=== PATIENT | female | born 1955 | race Caucasian/White ===

== ENCOUNTER 2020-05-06 13:31 | Emergency (ER) | payer BC ==
[~2020-05-06] VITALS: Ht 157.5 cm; Wt 58.5 kg
--- NOTE | 2020-05-06 13:32 | NUR ---
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 TO ER BED 16, HOOKED TO MONITOR, CHANGED TO HOSP GOWN, WARM BLANKET PROVIDED, PATIENT AAO x 4, BREATHING EVEN AND UNLABORED, AWAITING MD ALEXANDER.
--- NOTE | 2020-05-06 14:40 | NUR ---
AT BEDSIDE FOR EVAL.
--- NOTE | 2020-05-06 14:55 | NUR ---
PT IS WHEELED TO CT SCAN VIA [facility].
[2020-05-06] MEDS ORDERED: HYDROCODONE/APAP 10/325MG TABLET PO ONE (15:00)
[2020-05-06] MEDS ORDERED: TDAP [DIPH/PERTUSSIS/TET] 0.5 ML VIAL IM ONE ×2 (15:00→15:09)
[2020-05-06] MEDS ORDERED: HYDROCODONE/APAP 10/325MG TABLET ONE (15:09)
[2020-05-06] MEDS ORDERED: LIDOCAINE 1%-EPI 1:100,000 20 ML VIAL ONE (15:43)
[2020-05-06] MEDS ORDERED: LIDOCAINE 1%-EPI 1:100,000 50 ML VIAL IJ ONE (16:00)
--- NOTE | 2020-05-06 16:58 | NUR ---
IV removed. Catheter intact and site benign. Pressure and 4x4 applied to site. No bleeding noted. Patient discharged to home in stable condition. Written and verbal after care instructions given. Patient verbalizes understanding of instruction.
[2020-05-06 16:59] VITALS: BP 138/77
== END 2020-05-06 17:00 | disposition home or self-care (01) ==
LOC: ER 13:42
DX: S01.81XA Laceration without foreign body of other part of head, initial encounter (principal); S50.812A Abrasion of left forearm, initial encounter; R51.9 Headache, unspecified; I10 Essential (primary) hypertension; Z95.1 Presence of aortocoronary bypass graft; Z90.710 Acquired absence of both cervix and uterus; Z98.890 Other specified postprocedural states; Z88.8 Allergy status to other drugs, medicaments and biological substances; Z91.040 Latex allergy status; W01.198A Fall on same level from slipping, tripping and stumbling with subsequent striking against other object, initial encounter; Y93.89 Activity, other specified; Y92.89 Other specified places as the place of occurrence of the external cause; Y99.8 Other external cause status
CPT/HCPCS: 12013; 70450; 72125; 90471; 90715; 99285; A6403; J3490 ×2